=== PATIENT | female | born 1975 | race African-American/Black ===

== ENCOUNTER 2017-02-19 12:47 | Emergency (ER) | payer BC, SELFPAY ==
[~2017-02-19 12:47] MED LIST: Sodium Chloride 0.9% 1,000 ML BAG ONE
[2017-02-19 13:18] LABS: Clarity Clear (Clear)
[2017-02-19 13:19] LABS: Bilirubin Negative (Negative); Blood, Urine Trace (Negative); Glucose, Urine (Dipstick) Negative (Negative); Leukocyte Negative (Negative); Nitrite Negative (Negative); Protein, Urine (Dipstick) Negative (Neg-Trace); Urobilinogen 0.2 mg/dL (0.2-1.0); pH, Urine 5.5 (5.0-9.0)
[2017-02-19 13:28] LABS: RBC/HPF 0-3 HPF (0-3)
[2017-02-19 13:29] LABS: Bacteria/HPF Rare-Few HPF (None Seen)
[2017-02-19] MEDS ORDERED: HYDROcodone/Acetaminophen 10/325 mg Tablet ONE (13:31)
[2017-02-19] MEDS ORDERED: Ondansetron HCl/PF 4 MG/2 ML Vial ONE (13:32)
[2017-02-19] MEDS ORDERED: Diphenoxylate HCl/Atropine Tablet ONE (13:32)
[2017-02-19] MEDS ORDERED: Ketorolac Tromethamine 30 MG/ML VIAL ONE (13:32)
[2017-02-19 14:22] LABS: #Eosinphils 0.1 thou/uL (0.0-0.7); #Lymphocytes 1.3 thou/uL (1.20-3.40); #Monocytes 0.4 thou/uL (0.11-0.59); %Basophils 0.7 % (0.0-1.0); %Eosinophils 1.2 % (0.0-10.0); %Lymphocytes 22.5 % (21.0-51.0); %Monocytes 7.4 % (0.0-10.0); %Neutrophils 68.2 % (42.0-75.0); Hemoglobin 9.3 g/dL (12.0-16.0); Mean Corpuscular Hemoglobin 23.5 pg (27.0-31.0); Mean Corpuscular Volume 78.6 fl (81.0-99.0); Mean Platelet Volume 8.5 fL (7.4-10.4); Platelet Count 260 thou/uL (130-400); RBC Distribution Width 16.1 % (11.5-14.5); Red Blood Cell (RBC) Count 3.94 mill/uL (4.20-5.40); White Blood Cell (WBC) Count 5.9 thou/uL (4.8-10.8)
[2017-02-19 14:38] LABS: ALT (SGPT) 16 U/L (8-55); AST (SGOT) 15 U/L (5-34); Albumin 3.9 g/dL (3.5-5.0); Alkaline Phosphatase 57 U/L (40-150); Anion Gap 12 mmol/L (10-20); BUN (Urea Nitrogen) 11 mg/dL (7.0-18.7); Bilirubin, Total 0.3 mg/dL (0.2-1.2); Calc. Creatinine Clearance 0 mL/min (70-130); Calcium 8.9 mg/dL (7.8-10.44); Carbon Dioxide 22 mmol/L (22-29); Chloride 109 mmol/L (98-107); Estimated GFR-MDRD Greater than 90; Globulin 3.3 g/dL (2.4-3.5); Glucose 92 mg/dL (70-105); Potassium 3.9 mmol/L (3.5-5.1); Protein, Total 7.2 g/dL (6.0-8.3); Sodium 139 mmol/L (136-145)
[2017-02-19] MEDS ORDERED: Dexamethasone 10 MG/ML VIAL ONE (14:43)
[2017-02-19] MEDS ORDERED: methylPREDNISolone Sod Succ/PF 125 MG/2 ML VIAL ONE (14:43)
== END 2017-02-19 16:08 | disposition home or self-care (01) ==
LOC: MADERS 12:47
DX: K52.9 Noninfective gastroenteritis and colitis, unspecified (principal)
CPT/HCPCS: 36415; 80053; 81001; 85025; 85652; 87086; 96361; 96374; 96375; J1100; J1885; J2270; J2405; J2930; J7050

== ENCOUNTER 2017-09-08 14:34 | Emergency (ER) | payer BC ==
[2017-09-08] MEDS ORDERED: Metoclopramide HCl 10 MG TAB ONE (15:05)
[2017-09-08] MEDS ORDERED: Ibuprofen 800 MG TAB ONE (15:05)
[2017-09-08] MEDS ORDERED: diphenhydrAMINE 25 MG CAP ONE (15:05)
== END 2017-09-08 15:50 | disposition home or self-care (01) ==
LOC: MADERS 14:34
DX: G43.909 Migraine, unspecified, not intractable, without status migrainosus (principal); Z86.73 Personal history of transient ischemic attack (TIA), and cerebral infarction without residual deficits
CPT/HCPCS: 99283

== ENCOUNTER 2018-08-28 17:29 | Emergency (ER) | payer BC ==
[2018-08-28] MEDS ORDERED: Ibuprofen 800 MG TAB ONE (18:14)
[2018-08-28] MEDS ORDERED: Acetaminophen 500 MG TAB ONE (19:12)
[2018-08-28] MEDS ORDERED: AMOXicillin 250 MG CAP ONE (19:14)
== END 2018-08-28 19:40 | disposition home or self-care (01) ==
LOC: MADERS 17:29
DX: J02.0 Streptococcal pharyngitis (principal); Z79.899 Other long term (current) drug therapy
CPT/HCPCS: 87430; 87804; 99283

== ENCOUNTER 2019-01-20 14:11 | Emergency (ER) | payer BC, SELFPAY ==
[2019-01-20] MEDS ORDERED: Sodium Chloride 0.9% 1,000 ML ONE (14:48)
[2019-01-20] MEDS ORDERED: Ketorolac Tromethamine 30 MG/ML VIAL ONE (14:48)
[2019-01-20] MEDS ORDERED: Ondansetron PF 4 MG/2 ML Vial ONE (14:48)
[2019-01-20 14:57] LABS: Pregnancy Test - Urine (BHCG) Negative (Negative); Pregu Control Background? CLEAR/WHITE (CLR/WHITE); Pregu Control Bar Appear? YES (CONTROL BAR)
[2019-01-20 14:58] LABS: Bilirubin Negative (Negative); Blood, Urine Trace (Negative); Clarity Clear (Clear); Glucose, Urine (Dipstick) Negative (Negative); Leukocyte Negative (Negative); Nitrite Negative (Negative); Protein, Urine (Dipstick) Negative (Neg-Trace); Urobilinogen 0.2 mg/dL (Less than 2)
[2019-01-20 15:01] LABS: Bacteria/HPF Rare-Few HPF (None Seen); RBC/HPF 0-3 HPF (0-3); Squamous Epithelial 0-3 HPF (0-3); WBC/HPF None Seen HPF (0-3)
--- NOTE | 2019-01-20 15:06 | RAD ---
CHEST 2 VIEWS: Date: 01/20/19 HISTORY: Fever. COMPARISON: Radiograph dated 05/07/15. FINDINGS: Lungs are clear. No pneumothorax. No effusion. No acute osseous abnormality. IMPRESSION: No acute intrathoracic abnormality. POS: HOME
[2019-01-20 15:27] LABS: #Basophils 0.1 thou/uL (0.0-0.2); #Lymphocytes 1.3 thou/uL (1.20-3.40); #Monocytes 0.5 thou/uL (0.11-0.59); #Neutrophils 5.3 thou/uL (1.40-6.50); %Basophils 0.9 % (0.0-1.0); %Eosinophils 0.1 % (0.0-10.0); %Lymphocytes 17.8 % (21.0-51.0); %Monocytes 6.6 % (0.0-10.0); %Neutrophils 74.5 % (42.0-75.0); Hemoglobin 8.2 g/dL (12.0-16.0); Mean Corpuscular Hemoglobin 20.8 pg (27.0-31.0); Mean Corpuscular Volume 69.4 fL (78.0-98.0); Platelet Count 323 thou/uL (130-400); RBC Distribution Width 16.2 % (11.5-14.5); Red Blood Cell (RBC) Count 3.94 mill/uL (4.20-5.40); White Blood Cell (WBC) Count 7.1 thou/uL (4.8-10.8)
[2019-01-20 15:28] LABS: Hypochromia MODERATE=16-30 cells (100X) (0-5/hpf); MDiff Complete? YES; Microcytosis SLIGHT = 6-15 cells (100X) (0-5/hpf); Polychromasia MODERATE = 3-4 cells (100X) (0-2/hpf)
[2019-01-20 15:33] LABS: ALT (SGPT) 22 U/L (8-55); AST (SGOT) 27 U/L (5-34); Alkaline Phosphatase 67 U/L (40-150); Anion Gap 14 mmol/L (10-20); BUN (Urea Nitrogen) 10 mg/dL (7.0-18.7); Bilirubin, Total 0.2 mg/dL (0.2-1.2); Calc. Creatinine Clearance 0 mL/min (70-130); Calcium 9.1 mg/dL (7.8-10.44); Carbon Dioxide 22 mmol/L (22-29); Chloride 107 mmol/L (98-107); Estimated GFR-MDRD 82; Globulin 3.7 g/dL (2.4-3.5); Glucose 109 mg/dL (70-105); Lipase 25 U/L (8-78); Potassium 3.8 mmol/L (3.5-5.1); Protein, Total 7.7 g/dL (6.0-8.3); Sodium 139 mmol/L (136-145)
== END 2019-01-20 16:23 | disposition home or self-care (01) ==
LOC: MADERS 14:11
DX: J11.1 Influenza due to unidentified influenza virus with other respiratory manifestations (principal); D64.9 Anemia, unspecified; I10 Essential (primary) hypertension; Z79.899 Other long term (current) drug therapy
CPT/HCPCS: 71046; 80053; 81003; 81015; 81025; 83605; 83690; 85025; 96361; 96374; 96375; J1885; J2405; J7050

== ENCOUNTER 2020-04-22 07:55 | Emergency (ER) | payer BC, SELFPAY ==
[2020-04-22] MEDS ORDERED: Tranexamic Acid 1,000 MG/10 ML VIAL ONE (08:31)
[2020-04-22] MEDS ORDERED: Sodium Chloride 0.9% 100 ML ONE (08:31)
[2020-04-22] MEDS ORDERED: Sodium Chloride 0.9% 1,000 ML ONE (08:31)
[2020-04-22] MEDS ORDERED: Ketorolac Tromethamine 30 MG/ML VIAL ONE (08:31)
[2020-04-22 09:02] LABS: INR-International Normal Ratio 0.9
[2020-04-22 09:05] LABS: BHCG - Serum Negative (NEGATIVE); Pregs Control Background? CLEAR/WHITE (CLR/WHITE); Pregs Control Bar Appear? YES (CONTROL BAR)
[2020-04-22 09:11] LABS: #Basophils 0.1 thou/uL (0.0-0.2); #Eosinphils 0.1 thou/uL (0.0-0.7); #Lymphocytes 1.4 thou/uL (1.20-3.40); #Monocytes 0.4 thou/uL (0.11-0.59); #Neutrophils 2.2 thou/uL (1.40-6.50); %Basophils 1.7 % (0.0-1.0); %Eosinophils 3.1 % (0.0-10.0); %Monocytes 8.6 % (0.0-10.0); %Neutrophils 52.6 % (42.0-75.0); Anisocytosis MODERATE=16-30 cells (100X) (0-5/hpf); Hemoglobin 7.7 g/dL (12.0-16.0); Hypochromia MODERATE=16-30 cells (100X) (0-5/hpf); MDiff Complete? YES; Mean Corpuscular HGB CONC 30.4 g/dL (32.0-36.0); Mean Corpuscular Hemoglobin 21.2 pg (27.0-31.0); Mean Corpuscular Volume 69.8 fL (78.0-98.0); Mean Platelet Volume 7.9 fL (7.4-10.4); Microcytosis MODERATE=15-30 cells (100X) (0-5/hpf); Ovalocytes SLIGHT = 2-5 cells (100X) (0-1/hpf); Platelet Count 351 thou/uL (130-400); Platelet Morphology Comment Appears Adequate; RBC Distribution Width 17.3 % (11.5-14.5); Red Blood Cell (RBC) Count 3.61 mill/uL (4.20-5.40); White Blood Cell (WBC) Count 4.1 thou/uL (4.8-10.8)
[2020-04-22 09:13] LABS: ALT (SGPT) 14 U/L (8-55); AST (SGOT) 12 U/L (5-34); Albumin 4.1 g/dL (3.5-5.0); Alkaline Phosphatase 63 U/L (40-110); Anion Gap 13 mmol/L (10-20); BUN (Urea Nitrogen) 13 mg/dL (7.0-18.7); Bilirubin, Total 0.3 mg/dL (0.2-1.2); Calc. Creatinine Clearance 0 mL/min (70-130); Calcium 8.9 mg/dL (7.8-10.44); Carbon Dioxide 24 mmol/L (22-29); Chloride 108 mmol/L (98-107); Estimated GFR-MDRD Greater than 90; Globulin 3.4 g/dL (2.4-3.5); Glucose 105 mg/dL (70-105); Protein, Total 7.5 g/dL (6.0-8.3); Sodium 141 mmol/L (136-145)
== END 2020-04-22 09:45 | disposition home or self-care (01) ==
LOC: MADERS 07:55
DX: N94.6 Dysmenorrhea, unspecified (principal); D50.9 Iron deficiency anemia, unspecified; I10 Essential (primary) hypertension
CPT/HCPCS: 80053; 83605; 84703; 85025; 85610; 96365; J1885; J3490; J7050

== ENCOUNTER 2020-07-06 10:01 | Emergency (ER) | payer BC ==
[2020-07-06] MEDS ORDERED: Ondansetron PF 4 MG/2 ML Vial ONE (10:45)
[2020-07-06] MEDS ORDERED: Sodium Chloride 0.9% 1,000 ML ONE (10:45)
[2020-07-06] MEDS ORDERED: Ibuprofen 800 MG TAB ONE (10:45)
[2020-07-06 11:32] LABS: ALT (SGPT) 98 U/L (8-55); AST (SGOT) 102 U/L (5-34); Albumin 3.9 g/dL (3.5-5.0); Alkaline Phosphatase 99 U/L (40-110); Anion Gap 19 mmol/L (10-20); BUN (Urea Nitrogen) 7 mg/dL (7.0-18.7); Bilirubin, Total 0.3 mg/dL (0.2-1.2); CK (CPK) 94 U/L (29-168); Calc. Creatinine Clearance 0 mL/min (70-130); Calcium 8.6 mg/dL (7.8-10.44); Carbon Dioxide 20 mmol/L (22-29); Chloride 104 mmol/L (98-107); Globulin 3.7 g/dL (2.4-3.5); Glucose 105 mg/dL (70-105); Protein, Total 7.6 g/dL (6.0-8.3); Sodium 139 mmol/L (136-145)
[2020-07-06 11:45] LABS: #Lymphocytes 1.3 thou/uL (1.20-3.40); #Monocytes 0.3 thou/uL (0.11-0.59); #Neutrophils 4.2 thou/uL (1.40-6.50); %Basophils 0.1 % (0.0-1.0); %Eosinophils 0.1 % (0.0-10.0); %Lymphocytes 22.5 % (21.0-51.0); %Monocytes 4.3 % (0.0-10.0); Hemoglobin 9.8 g/dL (12.0-16.0); Mean Corpuscular HGB CONC 28.3 g/dL (32.0-36.0); Mean Corpuscular Hemoglobin 19.9 pg (27.0-31.0); Mean Corpuscular Volume 70.3 fL (78.0-98.0); Mean Platelet Volume 7.6 fL (7.4-10.4); Platelet Count 240 thou/uL (130-400); RBC Distribution Width 18.7 % (11.5-14.5); Red Blood Cell (RBC) Count 4.94 mill/uL (4.20-5.40); White Blood Cell (WBC) Count 5.8 thou/uL (4.8-10.8)
[2020-07-06 11:46] LABS: Anisocytosis MODERATE=16-30 cells (100X) (0-5/hpf); Hypochromia SLIGHT = 6-15 cells (100X) (0-5/hpf); MDiff Complete? YES; Microcytosis SLIGHT = 6-15 cells (100X) (0-5/hpf); Polychromasia SLIGHT = 2-3 cells (100X) (0-2/hpf)
--- NOTE | 2020-07-06 13:18 | RAD ---
EXAM: Chest one view: HISTORY: Fever, Covid positive, worsening symptoms COMPARISON: 01/20/2019 FINDINGS: Poor inspiration. Heart size: Within normal limits. Lungs: Patchy interstitial, alveolar, and groundglass opacity changes which certainly could be consis tent with bilateral Covid pneumonia. No evidence for confluent lobar pneumonia, significant pleural effusion, acute edema, or pneumothorax , or other significant acute process. IMPRESSION: Abnormal parenchymal changes bilaterally which certainly could be consistent with bilateral Covid pne umonia.
[2020-07-06] MEDS ORDERED: cefTRIAXone\\ROCEPHIN 1 GM VIAL ONE (13:57)
[2020-07-06] MEDS ORDERED: Sodium Chloride 0.9% 100 ML ONE (13:57)
[2020-07-06] MEDS ORDERED: Dexamethasone 10 MG/ML VIAL ONE (13:57)
[2020-07-06] MEDS ORDERED: Promethazine HCl 6.25 MG/5 ML Syrup ONE (14:00)
[2020-07-06] MEDS ORDERED: Sodium Chloride 0.9% 250 ML 250 ML ONE (14:00)
[2020-07-06] MEDS ORDERED: Azithromycin 500 MG VIAL ONE (14:00)
[2020-07-06] MEDS ORDERED: Guaifenesin DM 100-10/5 ML UDCUP ONE (14:02)
== END 2020-07-06 15:47 | disposition home or self-care (01) ==
LOC: MADERS 10:01
DX: U07.1 COVID-19 (principal); J12.82 Pneumonia due to coronavirus disease 2019; D64.9 Anemia, unspecified; E86.0 Dehydration; R11.2 Nausea with vomiting, unspecified
CPT/HCPCS: 36415; 71045; 80053; 82550; 83605; 84484; 85025; 96365; 96375; J0456; J0696; J1100; J2405; J3490; J7050

== ENCOUNTER 2020-07-08 01:46 | Emergency (ER) | payer BC ==
[2020-07-08] MEDS ORDERED: Dexamethasone 4 mg/ml Vial ONE (03:08)
[2020-07-08 04:17] LABS: ALT (SGPT) 149 U/L (8-55); AST (SGOT) 121 U/L (5-34); Albumin 3.6 g/dL (3.5-5.0); Alkaline Phosphatase 125 U/L (40-110); Anion Gap 15 mmol/L (10-20); BUN (Urea Nitrogen) 12 mg/dL (7.0-18.7); Bilirubin, Total 0.2 mg/dL (0.2-1.2); Calc. Creatinine Clearance 0 mL/min (70-130); Calcium 8.4 mg/dL (7.8-10.44); Carbon Dioxide 24 mmol/L (22-29); Chloride 107 mmol/L (98-107); Globulin 3.6 g/dL (2.4-3.5); Glucose 135 mg/dL (70-105); Potassium 3.8 mmol/L (3.5-5.1); Protein, Total 7.2 g/dL (6.0-8.3); Sodium 142 mmol/L (136-145)
[2020-07-08] MEDS ORDERED: Ondansetron ODT 4 MG TAB ONE (05:12)
[2020-07-08] MEDS ORDERED: ALPRAZolam 0.5 MG TAB ONE (07:03)
[2020-07-08] MEDS ORDERED: Enoxaparin Sodium 40 MG/0.4 ML SYRINGE ONE (09:03)
[2020-07-08] MEDS ORDERED: Prochlorperazine 10 MG/2 ML VIAL ONE (09:03)
[2020-07-08 09:21] LABS: ALT (SGPT) 158 U/L (8-55); AST (SGOT) 119 U/L (5-34); Albumin 3.7 g/dL (3.5-5.0); Alkaline Phosphatase 127 U/L (40-110); Anion Gap 16 mmol/L (10-20); BUN (Urea Nitrogen) 10 mg/dL (7.0-18.7); Bilirubin, Total 0.3 mg/dL (0.2-1.2); Calc. Creatinine Clearance 0 mL/min (70-130); Calcium 8.6 mg/dL (7.8-10.44); Carbon Dioxide 25 mmol/L (22-29); Chloride 104 mmol/L (98-107); Globulin 3.8 g/dL (2.4-3.5); Glucose 135 mg/dL (70-105); Potassium 4.1 mmol/L (3.5-5.1); Protein, Total 7.5 g/dL (6.0-8.3); Sodium 141 mmol/L (136-145)
[2020-07-08 09:34] LABS: #Lymphocytes 1.1 thou/uL (1.20-3.40); #Monocytes 0.2 thou/uL (0.11-0.59); #Neutrophils 7.4 thou/uL (1.40-6.50); %Basophils 0.2 % (0.0-1.0); %Lymphocytes 12.4 % (21.0-51.0); %Monocytes 2.4 % (0.0-10.0); Hemoglobin 8.2 g/dL (12.0-16.0); Mean Corpuscular HGB CONC 29.5 g/dL (32.0-36.0); Mean Corpuscular Hemoglobin 20.6 pg (27.0-31.0); Mean Corpuscular Volume 69.9 fL (78.0-98.0); Mean Platelet Volume 7.4 fL (7.4-10.4); Platelet Count 272 thou/uL (130-400); RBC Distribution Width 19.4 % (11.5-14.5); Red Blood Cell (RBC) Count 3.95 mill/uL (4.20-5.40); White Blood Cell (WBC) Count 8.7 thou/uL (4.8-10.8)
[2020-07-08 09:35] LABS: Anisocytosis SLIGHT = 6-15 cells (100X) (0-5/hpf); Hypochromia SLIGHT = 6-15 cells (100X) (0-5/hpf); MDiff Complete? YES; Microcytosis SLIGHT = 6-15 cells (100X) (0-5/hpf); Ovalocytes SLIGHT = 2-5 cells (100X) (0-1/hpf); Poikilocytosis SLIGHT = 6-15 cells (100X) (0-5/hpf); Polychromasia SLIGHT = 2-3 cells (100X) (0-2/hpf)
--- NOTE | 2020-07-08 11:29 | CT ---
Exam: Chest, abdomen, and pelvic CT scan with IV contrast: HISTORY: Shortness of breath, tachycardia, hypoxia, Covid positive FINDINGS: Very extensive alveolar, groundglass opacity, and interstitial changes throughout the majority of bot h lungs evidence for significant bilateral Covid pneumonia. No central pulmonary artery thrombosis although this exam was not performed as a CT angiogram protoco l exam. No mediastinal mass or adenopathy. No pleural effusion. No pericardial effusion. Motion artifact involving the abdomen chest and pelvis lowers the sensitivity of this study. Visualized liver, gallbladder, pancreas, spleen, adrenal glands are unremarkable. No renal calculus o r acute obstruction. No large or small bowel obstruction. Enlarged somewhat globular shaped uterus measuring approximately 7 cm in AP and transverse dimensions at the level of the fundus. No ab normal fluid collection within the abdomen or pelvis. IMPRESSION: Very extensive bilateral Covid pneumonia. Enlarged somewhat globular shaped uterus.
[2020-07-08] MEDS ORDERED: Sodium Chloride 0.9% 100 ML ONE (12:05)
[2020-07-08] MEDS ORDERED: Azithromycin 500 MG VIAL ONE (12:05)
[2020-07-08] MEDS ORDERED: cefTRIAXone\\ROCEPHIN 2 GM VIAL ONE (12:05)
[2020-07-08] MEDS ORDERED: Sodium Chloride 0.9% 250 ML 250 ML ONE (12:05)
[2020-07-08] MEDS ORDERED: Sodium Chloride 0.9% 3,000 ML ONE (12:05)
[2020-07-08] MEDS ORDERED: Iopamidol 370 76% 100 ML VIAL ONE (12:33)
== END 2020-07-08 15:07 | disposition short-term general hospital (02) ==
LOC: MADERS 01:46
DX: U07.1 COVID-19 (principal); J12.82 Pneumonia due to coronavirus disease 2019; B17.9 Acute viral hepatitis, unspecified; R09.02 Hypoxemia
CPT/HCPCS: 36415; 71260; 74177; 80053; 83605; 83690; 83735; 84484; 85025; 85379; 87040; 93005; 96365; 96372; 96375; 99292; J0456; J0696; J0780; J1100; J1650; J3490; J7050; Q0162; Q9967

== ENCOUNTER 2023-08-31 08:38 | Emergency (ER) | payer BC, SELFPAY | END 2023-08-31 09:00 | disposition home or self-care (01) | LOC: MADERS 08:38 | DX: J06.9 Acute upper respiratory infection, unspecified (principal); J00 Acute nasopharyngitis [common cold]; M79.10 Myalgia, unspecified site; I10 Essential (primary) hypertension | CPT/HCPCS: 99283 ==

== ENCOUNTER 2023-09-01 11:58 | Emergency (ER) | payer SELFPAY | END 2023-09-01 12:27 | disposition left against medical advice (07) | LOC: MADERS 11:58 | DX: Z53.21 Procedure and treatment not carried out due to patient leaving prior to being seen by health care provider (principal) ==

== ENCOUNTER 2023-09-02 06:36 | Emergency (ER) | payer SELFPAY | END 2023-09-02 08:07 | disposition home or self-care (01) | LOC: MADERS 06:36 | DX: U07.1 COVID-19 (principal) | CPT/HCPCS: 71046 ==